=== PATIENT | female | born 1945 | race African-American/Black ===

== ENCOUNTER 2017-02-07 10:39 | Inpatient (IN) | payer OTHER, MEDICARE ==
[2017-02-07] VITALS (12 sets, daily range): BP systolic 157–242; BP diastolic 65–104; PULSE 64–82; RESP 17–24; TEMP 97.5–98.4; O2SAT 95–99
[~2017-02-07] VITALS: Ht 165.1 cm; Wt 68.4 kg
[~2017-02-07 10:39] MED LIST: ASPI81 PO; SIMV5TAB3 PO; TOPR100T15 PO
[2017-02-07] MEDS ORDERED: SODIUM CHLORIDE 0.9% FLUSH 10 ML FLUSH IV FLUSH PRN ×2 (11:15→15:15)
--- NOTE | 2017-02-07 11:16 | PD ---
HPI Chief Complaint: Abnormal Results Time Seen by Provider: 11:05 Travel History International Travel<30 days: No Contact w/Intl Traveler<30days: No Traveled to known affect area: No History of Present Illness HPI Patient comes in complaining of right low extremity pain and swelling ongoing for 2 weeks. Patient denies any known injury. Patient reports approximately 3 weeks ago her primary care doctor changed her medications around taking her off of her water pill which she thinks is causing the swelling. Patient describes pain as a soreness primarily in her right foot radiates throughout her right lower extremity. Patient's reports she's had to start walking with a cane secondary to pain. Denies any chest pain, shortness breath, fevers, nausea and vomiting, numbness or tingling, headache, or loss or change in bowel or bladder. PFSH Past Medical History Hx Anticoagulant Therapy: No Asthma: No Autoimmune Disease: No Blood Disorders: No Depression: Yes Heart Rhythm Problems: Yes Cancer: Yes (HX THROAT CA) Cardiac Catheterization: Yes (STENT; ANGIOPLASTY) Cardiovascular Problems: Yes High Cholesterol: Yes Chemotherapy: No Chest Pain: Yes Congestive Heart Failure: Yes COPD: No Cerebrovascular Accident: No Coronary Artery Disease: Yes Diabetes: No Diminished Hearing: No Endocrine: No Genitourinary: No Hypertension: Yes Immune Disorder: No Musculoskeletal: No Neurologic: No Psychiatric: No Reproductive: No Respiratory: No Myocardial Infarction: No Radiation Therapy: Yes (25 years ago ) Sleep Apnea: No ?: Unknown Menopausal: Yes Past Surgical History Abdominal Surgery: No AICD: No Cardiac Surgery: No Coronary Stent: Yes Ear Surgery: No Endocrine Surgery: No Eye Surgery: No Genitourinary Surgery: No Gynecologic Surgery: No Hysterectomy: No Oral Surgery: Yes (THROAT CA REMOVAL) Pacemaker: No Thoracic Surgery: No Other Surgery: Yes (THROAT) Social History Alcohol Use: Yes (COUPLE SHOTS DAY) Tobacco Use: No Substance Use: Yes (MARIJUANA) Allergies-Medications (Allergen,Severity, Reaction): Coded Allergies: No Known Allergies (Verified , 02/07/17) Reported Meds & Prescriptions Reported Meds & Active Scripts Active Reported Donepezil 5 Mg Tab 5 Mg PO HS Atorvastatin (Atorvastatin Calcium) 40 Mg Tab 40 Mg PO HS Metoprolol Succinate ER 24 HR (Metoprolol Succinate) 25 Mg Tab 100 Mg PO DAILY Review of Systems Except as stated in HPI: all other systems reviewed are Neg Physical Exam Narrative GENERAL: Well-developed, overly nourished, in no acute distress, and non-ill appearing. SKIN: Focused skin assessment warm and dry. HEAD: Atraumatic. Normocephalic. EYES: Pupils equal and round. EOMI. No scleral icterus. No injection or drainage. ENT: No nasal bleeding or discharge. Mucous membranes pink and moist. NECK: Trachea midline. Supple. No nuclear rigidity. CARDIOVASCULAR: Dorsal pulses 2+, intact, equal bilaterally. Capillary refill less than 2 seconds. RESPIRATORY: No accessory muscle use. No respiratory distress. MUSCULOSKELETAL: No obvious deformities. No clubbing. No cyanosis. 1+ nonpitting edema right foot. Full range of motion. Negative Homans sign. Patient reports tenderness to palpation right lower extremity distal to the knee. NEUROLOGICAL: Awake and alert. No obvious cranial nerve deficits. Motor grossly within normal limits. Normal speech. PSYCHIATRIC: Appropriate mood and affect; insight and judgment normal. Data Data Last Documented VS Vital Signs Date Time Temp Pulse Resp B/P (MAP) Pulse Ox O2 Delivery O2 Flow Rate FiO2 02/07/17 14:17 230/84 (132) Automatic Cuff 02/07/17 13:50 22 02/07/17 13:15 73 96 Room Air 02/07/17 10:41 97.6 Orders Orders Basic Metabolic Panel (Bmp) (02/07/17 11:11) Complete Blood Count With Diff (02/07/17 11:11) Prothrombin Time / Inr (Pt) (02/07/17 11:11) Act Partial Throm Time (Ptt) (02/07/17 11:11) Iv Access Insert/Monitor (02/07/17 11:11) Ecg Monitoring (02/07/17 11:11) Oximetry (02/07/17 11:11) Sodium Chloride 0.9% Flush (Ns Flush) (02/07/17 11:15) Us Leg Venous Doppler (02/07/17 11:11) Foot, Complete (Cut7rla) (02/07/17 ) Acetaminophen (Tylenol) (02/07/17 12:45) Potassium Chlor 20 Meq Premix (Kcl 20 Me (02/07/17 13:30) Potassium Chloride (Kcl) (02/07/17 13:30) Lisinopril (Prinivil) (02/07/17 13:45) Labetalol Inj (Trandate Inj) (02/07/17 13:54) Electrocardiogram (02/07/17 ) Admit Order (Ed Use Only) (02/07/17 15:02) Labs Laboratory Tests Test 02/07/17 12:00 White Blood Count 9.5 TH/MM3 Red Blood Count 4.44 MIL/MM3 Hemoglobin 13.3 GM/DL Hematocrit 40.4 % Mean Corpuscular Volume 91.1 FL Mean Corpuscular Hemoglobin 30.1 PG Mean Corpuscular Hemoglobin Concent 33.0 % Red Cell Distribution Width 15.0 % Platelet Count 211 TH/MM3 Mean Platelet Volume 8.6 FL Neutrophils (%) (Auto) 76.8 % Lymphocytes (%) (Auto) 15.5 % Monocytes (%) (Auto) 6.6 % Eosinophils (%) (Auto) 0.6 % Basophils (%) (Auto) 0.5 % Neutrophils # (Auto) 7.3 TH/MM3 Lymphocytes # (Auto) 1.5 TH/MM3 Monocytes # (Auto) 0.6 TH/MM3 Eosinophils # (Auto) 0.1 TH/MM3 Basophils # (Auto) 0.0 TH/MM3 CBC Comment DIFF FINAL Differential Comment Prothrombin Time 10.9 SEC Prothromb Time International Ratio 1.0 RATIO Activated Partial Thromboplast Time 27.7 SEC Blood Urea Nitrogen 4 MG/DL Creatinine 0.79 MG/DL Random Glucose 95 MG/DL Calcium Level 8.0 MG/DL Sodium Level 142 MEQ/L Potassium Level 2.8 MEQ/L Chloride Level 101 MEQ/L Carbon Dioxide Level 34.3 MEQ/L Anion Gap 7 MEQ/L Estimat Glomerular Filtration Rate 87 ML/MIN [facility] Medical Decision Making Medical Screen Exam Complete: Yes Emergency Medical Condition: Yes Interpretation(s) X-ray of the right foot read by the radiologist shows: 1. No fracture, subluxation or other acute bony abnormality. 2. Osteopenia and mild scattered degenerative changes. 3. Nonspecific mild soft tissue swelling. 4. Small heel spur and small enthesophyte of the Achilles insertion. Ultrasound right lower extremity read by the radiologist shows: No DVT of the right lower extremity. EKG reviewed by Dr. Nye showed a sinus rhythm ventricular is 73. No STEMI. Differential Diagnosis DVT, fracture, edema, other Narrative Course Patient seen and examined. Initial laboratory neurological studies were ordered. IV was established and patient was placed on electronics engineering technologist. After having patient's blood pressure obtained manually by the RN, patient was reassessed reports she took her blood pressure medicine this morning and denies any symptoms from being elevated. Denies any headache, change in vision, chest pain, shortness of breath, back pain, bowel pain, or other symptoms. Discussed patient with Dr. Nye who saw and evaluated the patient and initially recommended starting patient on lisinopril however after having her blood pressure rechecked found to be even higher patient was then given a dose of labetalol and recommended patient stay overnight for further evaluation and treatment of her blood pressure. Patient is agreeable to this. All questions were answered. Discussed patient with hospitalist who is agreeable to patient. Physician Communication Physician Communication [address] Rodríguez, who is agreeable to admit the patient. Diagnosis Primary Impression: Hypertension Qualified Codes: I10 - Essential (primary) hypertension Additional Impressions: Hypokalemia Lower extremity edema Admitting Information Admitting Physician Requests: Observation Condition: Stable Jay Parr Feb 07, 2017 11:16
--- NOTE | 2017-02-07 11:46 | RADRPT ---
EXAM DATE/TIME: 02/07/2017 11:35 [facility] COMPARISON: No previous studies available for comparison. INDICATIONS : Pain without trauma. MEDICAL HISTORY : None. SURGICAL HISTORY : None. ENCOUNTER: Initial ACUITY: 2 weeks PAIN SCORE: 7/10 LOCATION: Right medial foot. FINDINGS: Bones of the right foot are osteopenic. No fracture or subluxation demonstrated. There is mild navicu lar/cuneiform and sesamoid osteoarthritis noted. There is a small heel spur and also a small enthesop hyte of the Achilles insertion. No evidence of Achilles tendon thickening. There is dorsal predominant mild soft tissue swelling, nonspecific. No radiopaque foreign body seen. CONCLUSION: 1. No fracture, subluxation or other acute bony abnormality. 2. Osteopenia and mild scattered degenerative changes. 3. Nonspecific mild soft tissue swelling. 4. Small heel spur and small enthesophyte of the Achilles insertion. Renato Erazo MD on February 07, 2017 at 11:43 Board Certified Radiologist. This report was verified electronically.
[2017-02-07] MEDS ORDERED: METO25TA6 PO (11:50)
[2017-02-07] MEDS ORDERED: ATOR40TA16 PO (12:28)
[2017-02-07] MEDS ORDERED: DONE5TAB7 PO (12:28)
--- NOTE | 2017-02-07 12:36 | RADRPT ---
EXAM DATE/TIME: 02/07/2017 12:04 [facility] COMPARISON: No previous studies available for comparison. INDICATIONS : Right leg edema. MEDICAL HISTORY : Hypercholesterolemia. Hypertension. Congestive heart failure. Depression. Alcohol use. Substan ce use. Carcinoma, throat. SURGICAL HISTORY : Throat carcinoma removal. Cardiac catheterization. Coronary stent. ENCOUNTER: Initial ACUITY: 2 weeks PAIN SCORE: 10/10 LOCATION: Right leg. TECHNIQUE: Venous ultrasound of the leg was performed from the inguinal ligament to the proximal calf. Real-yannick e, color Doppler and spectral tracing, compression and augmentation techniques were used. FINDINGS: There is normal compressibility of the deep venous system from the inguinal region to the proximal ca lf. No echogenic clot is seen in the lumen of the common femoral, femoral, popliteal, and posterior tibial veins. There is a normal response of the venous system to proximal and distal augmentation an d respiration. CONCLUSION: No DVT of the right lower extremity. Renato Erazo MD on February 07, 2017 at 12:34 Board Certified Radiologist. This report was verified electronically.
[2017-02-07 12:42] LABS: AUTOMATED NEUTROPHIL # 7.3 TH/MM3 (1.8-7.7); BASOPHIL % 0.5 % (0.0-2.0); EOSINOPHIL # 0.1 TH/MM3 (0-0.4); EOSINOPHIL % 0.6 % (0.0-4.0); HEMATOCRIT 40.4 % (35.0-46.0); HEMO FLAGS DIFF FINAL; LYMPH % 15.5 % (9.0-44.0); LYMPHOCYTE # 1.5 TH/MM3 (1.0-4.8); MEAN CELL VOLUME 91.1 FL (80.0-100.0); MEAN CORPUSCULAR HEMOGLOBIN 30.1 PG (27.0-34.0); MONO % 6.6 % (0.0-8.0); NEUT % 76.8 % (16.0-70.0); PLATELET COUNT 211 TH/MM3 (150-450); RED BLOOD COUNT 4.44 MIL/MM3 (4.00-5.30); WHITE BLOOD COUNT 9.5 TH/MM3 (4.0-11.0)
[2017-02-07] MEDS ORDERED: ACETAMINOPHEN 500 MG CPLT PO ONE (12:45)
[2017-02-07 12:52] LABS: APTT (PATIENT) 27.7 SEC (24.3-30.1); PROTHROMBIN TIME - PATIENT 10.9 SEC (9.8-11.6)
[2017-02-07 13:07] LABS: BICARBONATE 34.3 MEQ/L (21.0-32.0)
[2017-02-07 13:15] LABS: POTASSIUM 2.8 MEQ/L (3.5-5.1)
[2017-02-07] MEDS ORDERED: POTASSIUM CHLORIDE 20 MEQ CONTROLLED RELEASE TAB PO ONE (13:30)
[2017-02-07] MEDS ORDERED: POTASSIUM CHLOR 20 MEQ PREMIX 100 ML IV ONE (13:30)
[2017-02-07] MEDS ORDERED: LISINOPRIL 20 MG TAB PO ONE (13:45)
--- NOTE | 2017-02-07 13:50 | PD ---
Data Data Last Documented VS Vital Signs Date Time Temp Pulse Resp B/P (MAP) Pulse Ox O2 Delivery O2 Flow Rate FiO2 02/07/17 13:15 73 24 242/102 (148) 96 Room Air Manual Cuff/Auscultation 02/07/17 10:41 97.6 Orders Orders Basic Metabolic Panel (Bmp) (02/07/17 11:11) Complete Blood Count With Diff (02/07/17 11:11) Prothrombin Time / Inr (Pt) (02/07/17 11:11) Act Partial Throm Time (Ptt) (02/07/17 11:11) Iv Access Insert/Monitor (02/07/17 11:11) Ecg Monitoring (02/07/17 11:11) Oximetry (02/07/17 11:11) Sodium Chloride 0.9% Flush (Ns Flush) (02/07/17 11:15) Us Leg Venous Doppler (02/07/17 11:11) Foot, Complete (Wmc2tta) (02/07/17 ) Acetaminophen (Tylenol) (02/07/17 12:45) Potassium Chlor 20 Meq Premix (Kcl 20 Me (02/07/17 13:30) Potassium Chloride (Kcl) (02/07/17 13:30) Lisinopril (Prinivil) (02/07/17 13:45) Labs Laboratory Tests Test 02/07/17 12:00 White Blood Count 9.5 TH/MM3 Red Blood Count 4.44 MIL/MM3 Hemoglobin 13.3 GM/DL Hematocrit 40.4 % Mean Corpuscular Volume 91.1 FL Mean Corpuscular Hemoglobin 30.1 PG Mean Corpuscular Hemoglobin Concent 33.0 % Red Cell Distribution Width 15.0 % Platelet Count 211 TH/MM3 Mean Platelet Volume 8.6 FL Neutrophils (%) (Auto) 76.8 % Lymphocytes (%) (Auto) 15.5 % Monocytes (%) (Auto) 6.6 % Eosinophils (%) (Auto) 0.6 % Basophils (%) (Auto) 0.5 % Neutrophils # (Auto) 7.3 TH/MM3 Lymphocytes # (Auto) 1.5 TH/MM3 Monocytes # (Auto) 0.6 TH/MM3 Eosinophils # (Auto) 0.1 TH/MM3 Basophils # (Auto) 0.0 TH/MM3 CBC Comment DIFF FINAL Differential Comment Prothrombin Time 10.9 SEC Prothromb Time International Ratio 1.0 RATIO Activated Partial Thromboplast Time 27.7 SEC Blood Urea Nitrogen 4 MG/DL Creatinine 0.79 MG/DL Random Glucose 95 MG/DL Calcium Level 8.0 MG/DL Sodium Level 142 MEQ/L Potassium Level 2.8 MEQ/L Chloride Level 101 MEQ/L Carbon Dioxide Level 34.3 MEQ/L Anion Gap 7 MEQ/L Estimat Glomerular Filtration Rate 87 ML/MIN MDM Supervised Visit with JAMISON: Yes Narrative Course The history, exam, and medical decision-making in the associated mid-level provider note were completed with my assistance. I reviewed and agree with the findings presented. I attest that I had a [id number] encounter with the patient on the same day, and personally performed and documented my assessment and findings in the medical record. *My assessment and Findings: Right lower extremity parents on for 2 weeks. Saw her primary DrDeborah who changed around her medicines. She is currently on just a beta dee. It sounds like she was on a thiazide diuretic and an IVETTE inhibitor before. Potassium is a little low here. Blood pressures elevated. States she did take her metoprolol today. We'll restart her on an IVETTE inhibitor, give her some potassium, recommend close follow-up and recheck of potassium. Kristopher Nye MD Feb 07, 2017 13:50
[2017-02-07] MEDS ORDERED: LABETALOL HCL 100 MG/20 ML VIAL IV PUSH STA (13:54)
--- NOTE | 2017-02-07 15:08 | EKG ---
Date Performed: 02/07/2017 Time Performed: 14:19:36 PTAGE: 71 years EKG: Sinus rhythm WITH SINUS ARRHYTHMIA MINIMAL VOLTAGE CRITERIA FOR LVH, CONSIDER NORMAL VARIANT BORDERLINE ECG PREVIOUS TRACING : 01/31/2014 14.36 Compared to prior tracing no significant change DOCTOR: Unruly Mcnair Interpretating Date/Time 02/07/2017 15:08:08
[2017-02-07] MEDS ORDERED: NALOXONE HCL 0.4 MG/ML AMP IV PRN (15:15)
[2017-02-07] MEDS ORDERED: BISACODYL 10 MG SUPP RECTAL PRN (15:15)
[2017-02-07] MEDS ORDERED: hydrALAZINE HCL 20 MG/ML VIAL IV PUSH PRN (15:15)
[2017-02-07] MEDS ORDERED: SENNOSIDES 8.6 MG TAB PO PRN (15:15)
[2017-02-07] MEDS ORDERED: ACETAMINOPHEN 325 MG TAB PO PRN (15:15)
[2017-02-07] MEDS ORDERED: ONDANSETRON HCL 4 MG/2 ML VIAL IVP PRN (15:15)
[2017-02-07] MEDS ORDERED: LACTULOSE SYRUP 20 GM/30 ML CUP PO PRN (15:15)
[2017-02-07] MEDS ORDERED: MAGNESIUM HYDROXIDE SUSP 30 ML CUP PO PRN (15:15)
[2017-02-07] MEDS: cloNIDine HCL 0.1 MG TAB PO SCH ×2 (16:34→22:54)
[2017-02-07] MEDS ORDERED: niCARdipine INJ 25 MG in SODIUM CHLOR 0.9% 250 ML INJ 250 ML IV PRN (16:40)
--- NOTE | 2017-02-07 16:53 | HHI.HP ---
[facility] Primary Care Physician Unknown Admission Diagnosis hypertension, hypokalemia Diagnoses: Chief Complaint: Right lower extremity swelling and pain Travel History International Travel<30 Days: No Contact w/Intl Traveler <30 Da: No Traveled to Known Affected Are: No History of Present Illness 71-year-old female past medical history of hypertension who presented with right lower extremity edema and pain. Patient stated that one week ago her physician took her off of hydrochlorothiazide and simvastatin and put her on a long-acting metoprolol. She stated that she stopped the hydrochlorothiazide due to low potassium. Patient stated that after that happened she started having lower extremity edema. Edema initially more on the left than the right. She stated that due to edema and pain she went to the hospital. In the hospital patient was found to have a systolic blood pressures in the 240s. She denies any visual changes, headache, nausea/vomiting, chest pain, palpitation, lightheadedness or dizziness. She stated that she does have a history of heart murmur that she was diagnosed of a long time ago. She stated that she is unsure what type of heart murmur. She denies any symptoms of chest pain, shortness of breathing, palpitation, lightheadedness or dizziness with exertion. Patient's daughter is at the bedside during the interview. All other review of symptoms reviewed and all negative. Past Family Social History Past Medical History Hypertension History of throat cancer Coronary artery disease Hyperlipidemia Past Surgical History Removal of throat cancer Coronary artery disease Reported Medications Donepezil 5 Mg Tab 5 Mg PO HS Atorvastatin (Atorvastatin Calcium) 40 Mg Tab 40 Mg PO HS Metoprolol Succinate ER 24 HR (Metoprolol Succinate) 25 Mg Tab 100 Mg PO DAILY Allergies: Coded Allergies: No Known Allergies (Verified , 02/07/17) Active Ordered Medications Current Medications Sodium Chloride (NS Flush) 2 ml UNSCH PRN IV FLUSH FLUSH AFTER USING IV ACCESS Last administered on 02/07/17t 13:50; Start 02/07/17 at 11:15; Stop 02/07/17 at 15:59; Status DC Acetaminophen (Tylenol) 500 mg ONCE ONCE PO Last administered on 02/07/17 13: 08; Start 02/07/17 at 12:45; Stop 02/07/17 at 12:46; Status DC Potassium Chloride 100 ml @ 50 mls/hr BOLUS ONCE IV Last administered on 02/07 13:51; Start 02/07/17 at 13:30; Stop 02/07/17 at 15:29; Status DC Potassium Chloride (KCl) 40 meq ONCE ONCE PO Last administered on 02/07/17 13 :50; Start 02/07/17 at 13:30; Stop 02/07/17 at 13:31; Status DC Lisinopril (Prinivil) 20 mg ONCE ONCE PO Last administered on 02/07/17 13:49 ; Start 02/07/17 at 13:45; Stop 02/07/17 at 13:46; Status DC Labetalol HCl (Trandate Inj) 10 mg ONCE STAT IV PUSH Last administered on 02/07 14:06; Start 02/07/17 at 13:54; Stop 02/07/17 at 13:56; Status DC Sodium Chloride (NS Flush) 2 ml UNSCH PRN IV FLUSH FLUSH AFTER USING IV ACCESS ; Start 02/07/17 at 15:15 Sodium Chloride (NS Flush) 2 ml BID IV FLUSH ; Start 02/07/17 at 21:00 Acetaminophen (Tylenol) 650 mg Q4H PRN PO TEMP > 100.4; Start 02/07/17 at 15:15 Ondansetron HCl (Zofran Inj) 4 mg Q6H PRN IVP NAUSEA OR VOMITING; Start at 15:15 Naloxone HCl (Narcan Inj) 0.4 mg UNSCH PRN IV SEE LABEL COMMENTS; Start at 15:15 Senna/Docusate Sodium (Mireille-Colace) 1 tab BID PO ; Start 02/07/17 at 21:00 Magnesium Hydroxide (Milk Of Magnesia Liq) 30 ml Q12H PRN PO MILD - MODERATE CONSTIPATION; Start 02/07/17 at 15:15 Sennosides (Senokot) 17.2 mg Q12H PRN PO MODERATE - SEVERE CONSTIPATION; Start 02/07/17 at 15:15 Bisacodyl (Dulcolax Supp) 10 mg DAILY PRN RECTAL SEVERE CONSITIPATION; Start at 15:15 Lactulose (Lactulose Liq) 30 ml DAILY PRN PO SEVERE CONSITIPATION; Start at 15:15 Hydralazine HCl (Apresoline Inj) 20 mg Q4H PRN IV PUSH SPB>180 or DBP>100; Start 02/07/17 at 15:15 Atorvastatin Calcium (Lipitor) 40 mg HS PO ; Start 02/07/17 at 21:00 Donepezil HCl (Aricept) 5 mg HS PO ; Start 02/07/17 at 21:00 Metoprolol Succinate (Toprol Xl) 100 mg DAILY PO ; Start 02/08/17 at 09:00 Clonidine (Catapres) 0.1 mg Q8HR PO Last administered on 02/07/17t 16:34; Start 02/07/17 at 15:15 Family History Past family history reviewed and are negative. Social History Patient socially drinks and occasionally use marijuana. Denies any history of tobacco use. Physical Exam Vital Signs Vital Signs Date Time Temp Pulse Resp B/P (MAP) Pulse Ox O2 Delivery O2 Flow Rate FiO2 02/07/17 16:00 72 22 227/104 (145) 99 Room Air 02/07/17 15:15 66 20 200/88 (125) 95 Room Air 02/07/17 14:17 230/84 (132) Automatic Cuff 02/07/17 13:50 22 02/07/17 13:15 73 24 242/102 (148) 96 Room Air Manual Cuff/Auscultation 02/07/17 11:58 232/82 (132) 230/82 (131) 02/07/17 11:54 236/80 (131) Automatic Cuff 02/07/17 11:44 96 Room Air 02/07/17 10:41 97.6 72 20 97 Room Air Physical Exam GENERAL: This is a well-nourished, well-developed patient, in no apparent distress. SKIN: No rashes, ecchymoses or lesions. Cool and dry. HEAD: Atraumatic. Normocephalic. No temporal or scalp tenderness. EYES: Pupils equal round and reactive. Extraocular motions intact. No scleral icterus. No injection or drainage. ENT: Nose without bleeding, purulent drainage or septal hematoma. Throat without erythema, tonsillar hypertrophy or exudate. Uvula midline. Airway patent. NECK: Trachea midline. No JVD or lymphadenopathy. Supple, nontender, no meningeal signs. CARDIOVASCULAR: Regular rate and rhythm 4/6 harsh systolic heart murmur RESPIRATORY: Clear to auscultation. Breath sounds equal bilaterally. No wheezes , rales, or rhonchi. GASTROINTESTINAL: Abdomen soft, non-tender, nondistended. No hepato-splenomegaly , or palpable masses. No guarding. MUSCULOSKELETAL: Right lower leg with trace edema. NEUROLOGICAL: Awake and alert. Cranial nerves II through XII intact. Motor and sensory grossly within normal limits. Five out of 5 muscle strength in all muscle groups. Normal speech. Laboratory Laboratory Tests Test 02/07/17 12:00 White Blood Count 9.5 Red Blood Count 4.44 Hemoglobin 13.3 Hematocrit 40.4 Mean Corpuscular Volume 91.1 Mean Corpuscular Hemoglobin 30.1 Mean Corpuscular Hemoglobin Concent 33.0 Red Cell Distribution Width 15.0 Platelet Count 211 Mean Platelet Volume 8.6 Neutrophils (%) (Auto) 76.8 Lymphocytes (%) (Auto) 15.5 Monocytes (%) (Auto) 6.6 Eosinophils (%) (Auto) 0.6 Basophils (%) (Auto) 0.5 Neutrophils # (Auto) 7.3 Lymphocytes # (Auto) 1.5 Monocytes # (Auto) 0.6 Eosinophils # (Auto) 0.1 Basophils # (Auto) 0.0 CBC Comment DIFF FINAL Differential Comment Prothrombin Time 10.9 Prothromb Time International Ratio 1.0 Activated Partial Thromboplast Time 27.7 Blood Urea Nitrogen 4 Creatinine 0.79 Random Glucose 95 Calcium Level 8.0 Sodium Level 142 Potassium Level 2.8 Chloride Level 101 Carbon Dioxide Level 34.3 Anion Gap 7 Estimat Glomerular Filtration Rate 87 Result Diagram: 02/07/17 1200 02/07/17 1200 Imaging Last Impressions Lower Extremity Ultrasound 02/07/17 1111 Signed Impressions: Service Date/Time: Tuesday, February 07, 2017 12:04 - CONCLUSION: No DVT of the right lower extremity. Renato Erazo MD Foot X-Ray 02/07/17 0000 Signed Impressions: Service Date/Time: Tuesday, February 07, 2017 11:35 - CONCLUSION: 1. No fracture, subluxation or other acute bony abnormality. 2. Osteopenia and mild scattered degenerative changes. 3. Nonspecific mild soft tissue swelling. 4. Small heel spur and small enthesophyte of the Achilles insertion. Renato Erazo MD Caprinjosephine VTE Risk Assessment Caprini VTE Risk Assessment: Mod/High Risk (score >= 2) Caprini Risk Assessment Model Point Value = 1 Point Value = 2 Point Value = 3 Point Value = 5 Age 41-60 Minor surgery BMI > 25 kg/m2 Swollen legs Varicose veins or History of unexplained or recurrent spontaneous Oral contraceptives or hormone replacement Sepsis (< 1 month) Serious lung disease, including pneumonia (< 1 month) Abnormal pulmonary function Acute myocardial infarction Congestive heart failure (< 1 month) History of inflammatory bowel disease Medical patient at bed rest Age 61-74 Arthroscopic surgery Major open surgery (> 45 min) Laparoscopic surgery (> 45 min) Malignancy Confined to bed (> 72 hours) Immobilizing plaster cast Central venous access Age >= 75 History of VTE Family history of VTE Factor V Leiden Prothrombin [id number] Lupus anticoagulant Anticardiolipin antibodies Elevated serum homocysteine Heparin-induced thrombocytopenia Other congenital or acquired thrombophilia Stroke (< 1 month) Elective arthroplasty Hip, pelvis, or leg fracture Acute spinal cord injury (< 1 month) Prophylaxis Regimen Total Risk Factor Score Risk Level Prophylaxis Regimen 0-1 Low Early ambulation 2 Moderate Order ONE of the following: *Sequential Compression Device (SCD) *Heparin 5000 units SQ BID 3-4 Higher Order ONE of the following medications: *Heparin 5000 units SQ TID *Enoxaparin/Lovenox 40 mg SQ daily (WT < 150 kg, CrCl > 30 mL/min) *Enoxaparin/Lovenox 30 mg SQ daily (WT < 150 kg, CrCl > 10-29 mL/min) *Enoxaparin/Lovenox 30 mg SQ BID (WT < 150 kg, CrCl > 30 mL/min) AND/OR *Sequential Compression Device (SCD) 5 or more Highest Order ONE of the following medications: *Heparin 5000 units SQ TID (Preferred with Epidurals) *Enoxaparin/Lovenox 40 mg SQ daily (WT < 150 kg, CrCl > 30 mL/min) *Enoxaparin/Lovenox 30 mg SQ daily (WT < 150 kg, CrCl > 10-29 mL/min) *Enoxaparin/Lovenox 30 mg SQ BID (WT < 150 kg, CrCl > 30 mL/min) AND *Sequential Compression Device (SCD) Assessment and Plan Assessment and Plan 71-year-old female past medical history of attention, coronary disease, hyperlipidemia who presented with Hypertensive urgency -Systolic blood person to 240s but asymptomatic. She was given labetalol and lisinopril were no improvement in blood pressure. She was then given clonidine with no improvement. Will put patient on Cardene drip. Adjust accordingly. Resume home medication. Heart murmur -Patient has a history of heart murmur. Heart murmur was pretty harsh and she has not had a recent echo. Due to hypertensive urgency will get an echo. Right lower extremity edema -Doppler order was negative for any DVT. -Most likely secondary to uncontrolled blood pressure. -Will monitor. DVT prophylaxis -SCDs Code Status full code Discussed Condition With patient and her daughter Physician Certification 2 Midnight Certification Type: Admission for Inpatient Services Order for Inpatient Services The services are ordered in accordance with Medicare regulations or non- Medicare payer requirements, as applicable. In the case of services not specified as inpatient-only, they are appropriately provided as inpatient services in accordance with the 2-midnight benchmark. Estimated LOS (days): 2 2 days is the estimated time the patient will need to remain in the hospital, assuming treatment plan goals are met and no additional complications. Post-Hospital Plan: Lakisha Jerez MD Feb 07, 2017 16:53
[2017-02-07] MEDS ORDERED: POTASSIUM CHLORIDE 25 MEQ EFFERVESCENT TAB PO ONE (18:45)
[2017-02-07] MEDS ORDERED: ATORVASTATIN 40 MG TAB PO SCH (21:00)
[2017-02-07] MEDS: SODIUM CHLORIDE 0.9% FLUSH 10 ML FLUSH IV FLUSH SCH (21:00)
[2017-02-07] MEDS: POTASSIUM CHLORIDE 20 MEQ CONTROLLED RELEASE TAB PO SCH (21:00)
[2017-02-07] MEDS ORDERED: DONEPEZIL HCL 5 MG TAB PO SCH (21:00)
[2017-02-07 22:07] LABS: MAGNESIUM 1.4 MG/DL (1.5-2.5); POTASSIUM 3.9 MEQ/L (3.5-5.1)
[2017-02-07] MEDS: DOCUSATE SODIUM 50 MG/SENNA 8.6 MG TAB PO SCH (22:54)
[2017-02-08 04:27] VITALS: BP 152/63; PULSE 80; RESP 17; TEMP 97.6; O2SAT 96
[2017-02-08] MEDS: cloNIDine HCL 0.1 MG TAB PO SCH ×2 (06:16→14:41)
[2017-02-08 07:42] VITALS: BP 114/60; PULSE 61; RESP 18; TEMP 97.5; O2SAT 100
[2017-02-08 08:30] LABS: HEMATOCRIT 34.5 % (35.0-46.0); MEAN CELL VOLUME 91.7 FL (80.0-100.0); MEAN CORPUSCULAR HEMOGLOBIN 30.6 PG (27.0-34.0); MEAN CORPUSCULAR HGB CONC 33.4 % (32.0-36.0); PLATELET COUNT 150 TH/MM3 (150-450); RED BLOOD COUNT 3.76 MIL/MM3 (4.00-5.30); RED CELL DISTRIBUTION WIDTH 14.8 % (11.6-17.2); REVIEW FLAG FINAL; WHITE BLOOD COUNT 5.9 TH/MM3 (4.0-11.0)
[2017-02-08 08:58] LABS: BICARBONATE 30.7 MEQ/L (21.0-32.0)
[2017-02-08] MEDS: POTASSIUM CHLORIDE 20 MEQ CONTROLLED RELEASE TAB PO SCH (08:58)
[2017-02-08] MEDS: DOCUSATE SODIUM 50 MG/SENNA 8.6 MG TAB PO SCH (08:58)
[2017-02-08] MEDS ORDERED: LISINOPRIL 20 MG TAB PO SCH (09:00)
[2017-02-08] MEDS ORDERED: METOPROLOL SUCCINATE 50 MG EXTENDED RELEASE TAB PO SCH (09:00)
[2017-02-08] MEDS: SODIUM CHLORIDE 0.9% FLUSH 10 ML FLUSH IV FLUSH SCH (09:01)
[2017-02-08 09:15] LABS: POTASSIUM 2.8 MEQ/L (3.5-5.1)
[2017-02-08] MEDS ORDERED: POTASSIUM CHLORIDE 25 MEQ EFFERVESCENT TAB PO ONE (10:30)
[2017-02-08 11:38] VITALS: BP 161/68; PULSE 73; RESP 18; TEMP 96.5; O2SAT 96
[2017-02-08] MEDS: MAGNESIUM SULFATE 1 GM PREMIX 100 ML IV SCH ×2 (12:08→14:41)
[2017-02-08] MEDS ORDERED: MAGN250T11 PO (12:16)
[2017-02-08] MEDS ORDERED: CLON0.1T PO (12:16)
[2017-02-08] MEDS ORDERED: LISI-515 PO (12:16)
[2017-02-08] MEDS ORDERED: POTA20TA5 PO (12:16)
--- NOTE | 2017-02-08 12:32 | ECHRPT ---
Indication: a fib/flutter CONCLUSIONS The left ventricular systolic function is low normal with an estimated ejection fraction in the rang e of 50- 55%. Normal left ventricular size. There is assymetric septal hypertrophy. No regional wall motion abnormalities are present. Mild mitral valve regurgitation. Mild aortic valve regurgitation. No aortic valve stenosis. Aortic valve mean gradient is 7 mmHg. There is mild tricuspid valve regurgitation. The pulmonary valve is not well visualized. BP: / HR: Rhythm: MEASUREMENTS (Male / Female) Normal Values Technical Quality:Good 2D ECHO LV Diastolic Diameter PLAX 4.4 cm 4.2 - 5.9 / 3.9 - 5.3 cm LV Systolic Diameter PLAX 3.4 cm IVS Diastolic Thickness 1.5 cm 0.6 - 1.0 / 0.6 - 0.9 cm LVPW Diastolic Thickness 0.9 cm 0.6 - 1.0 / 0.6 - 0.9 cm LV Relative Wall Thickness 0.5 RV Internal Dim ED PLAX 2.5 cm LVOT Diameter 1.5 cm M-MODE Aortic Root Diameter MM 2.9 cm LA Systolic Diameter MM 3.3 cm LA Ao Ratio MM 1.1 AV Cusp Separation MM 1.6 cm DOPPLER AV Peak Velocity 190.0 cm/s AV Peak Gradient 14.4 mmHg AV Mean Gradient 7.0 mmHg AV Velocity Time Integral 45.9 cm AI Peak Velocity 238.0 cm/s AI Peak Gradient 22.7 mmHg AI Pressure Half Time 572.0 ms LVOT Peak Velocity 98.5 cm/s LVOT Peak Gradient 3.9 mmHg LVOT Velocity Time Integral 30.1 cm AV Area Cont Eq vti 1.2 cm AV Area Cont Eq pk 0.9 cm Mitral E Point Velocity 81.4 cm/s Mitral A Point Velocity 80.5 cm/s Mitral E to A Ratio 1.0 LV E' Lateral Velocity 10.7 cm/s Mitral E to LV E' Lateral Ratio 7.6 LV E' Septal Velocity 8.1 cm/s Mitral E to LV E' Septal Ratio 10.1 FINDINGS LEFT VENTRICLE The left ventricular systolic function is low normal with an estimated ejection fraction in the rang e of 50- 55%. Normal left ventricular size. There is assymetric septal hypertrophy. No regional wall motion abnormalities are present. RIGHT VENTRICLE Normal right ventricular size and systolic function. LEFT ATRIUM The left atrial size is normal. RIGHT ATRIUM The right atrial size is normal. ATRIAL SEPTUM Normal atrial septal thickness without atrial level shunting by limited color doppler interrogation. AORTA The aortic root and proximal ascending aorta are normal in size on limited imaging. MITRAL VALVE Structurally normal mitral valve. Mild mitral valve regurgitation. AORTIC VALVE Trileaflet aortic valve. Mild aortic valve regurgitation. No aortic valve stenosis. Aortic valve mean gradient is 7 mmHg. TRICUSPID VALVE There is mild tricuspid valve regurgitation. Structurally normal tricuspid valve. PULMONARY VALVE The pulmonary valve is not well visualized. VESSELS The inferior vena cava is normal in size. PERICARDIUM No pericardial effusion. Jerald Chris MD (Electronically Signed) Final Date:08 February 2017 12:30
--- NOTE | 2017-02-08 14:38 | HHI.DCPOC ---
Discharge Care Plan Diagnosis: (1) Hypertensive urgency (2) Hypokalemia Goals to Promote Your Health * To prevent worsening of your condition and complications * To maintain your health at the optimal level Directions to Meet Your Goals Take your medications as prescribed Follow your dietary instruction Follow activity as directed Keep your appointments as scheduled Take your immunizations and boosters as scheduled If your symptoms worsen call your PCP, if no PCP go to Urgent Care Center or Emergency Room Smoking is Dangerous to Your Health. Avoid second hand smoke Call the 24-hour hour crisis hotline for domestic abuse at Lakisha Rodríguez MD Feb 08, 2017 14:38
--- NOTE | 2017-02-08 15:39 | HHI.PR ---
Subjective Remarks f/u for hypertensive urgency and hypokalemia. patient stated she feels great. BP improved drastically. She stated leg pain has improved too. Patient very anxious to go home. Two daughters at bedside. Objective Vitals Vital Signs Date Time Temp Pulse Resp B/P (MAP) Pulse Ox O2 Delivery O2 Flow Rate FiO2 02/08/17 11:38 96.5 73 18 161/68 (99) 96 02/08/17 07:42 97.5 61 18 114/60 (78) 100 02/08/17 04:27 97.6 80 17 152/63 (92) 96 02/07/17 23:00 97.5 82 18 161/74 (103) 97 02/07/17 21:34 98.4 68 20 165/65 (98) 97 Room Air 02/07/17 18:00 74 17 157/67 (97) 98 Room Air 02/07/17 17:00 64 20 202/82 (122) 96 Room Air 02/07/17 16:00 72 22 227/104 (145) 99 Room Air I/O 02/07/17 02/07/17 02/07/17 02/08/17 02/08/17 02/08/17 06:59 14:59 22:59 06:59 14:59 22:59 Intake Total 50 ml 240 ml 850 ml Balance 50 ml 240 ml 850 ml Intake Oral 240 ml 750 ml IV Total 50 ml 100 ml # Voids 3 1 1 2 # Bowel Movements 0 Result Diagram: 02/08/17 0736 02/08/17 0736 Objective Remarks GENERAL: in NAD NECK: Supple, trachea midline. No JVD or lymphadenopathy. CARDIOVASCULAR: Regular rate and rhythm 4/6 systolic harsh murmur. RESPIRATORY: Breath sounds equal bilaterally. No accessory muscle use. GASTROINTESTINAL: Abdomen soft, non-tender, nondistended. MUSCULOSKELETAL: No cyanosis, or edema. BACK: Nontender without obvious deformity. No CVA tenderness. Medications and IVs Current Medications Sodium Chloride (NS Flush) 2 ml UNSCH PRN IV FLUSH FLUSH AFTER USING IV ACCESS Last administered on 02/07/17 13:50; Start 02/07/17 at 11:15; Stop 02/07/17 at 15:59; Status DC Acetaminophen (Tylenol) 500 mg ONCE ONCE PO Last administered on 02/07/17 13: 08; Start 02/07/17 at 12:45; Stop 02/07/17 at 12:46; Status DC Potassium Chloride 100 ml @ 50 mls/hr BOLUS ONCE IV Last administered on 02/07 13:51; Start 02/07/17 at 13:30; Stop 02/07/17 at 15:29; Status DC Potassium Chloride (KCl) 40 meq ONCE ONCE PO Last administered on 02/07/17 13 :50; Start 02/07/17 at 13:30; Stop 02/07/17 at 13:31; Status DC Lisinopril (Prinivil) 20 mg ONCE ONCE PO Last administered on 02/07/17 13:49 ; Start 02/07/17 at 13:45; Stop 02/07/17 at 13:46; Status DC Labetalol HCl (Trandate Inj) 10 mg ONCE STAT IV PUSH Last administered on 02/07 14:06; Start 02/07/17 at 13:54; Stop 02/07/17 at 13:56; Status DC Sodium Chloride (NS Flush) 2 ml UNSCH PRN IV FLUSH FLUSH AFTER USING IV ACCESS ; Start 02/07/17 at 15:15 Sodium Chloride (NS Flush) 2 ml BID IV FLUSH Last administered on 02/08/17 09: 01; Start 02/07/17 at 21:00 Acetaminophen (Tylenol) 650 mg Q4H PRN PO TEMP > 100.4; Start 02/07/17 at 15:15 Ondansetron HCl (Zofran Inj) 4 mg Q6H PRN IVP NAUSEA OR VOMITING; Start at 15:15 Naloxone HCl (Narcan Inj) 0.4 mg UNSCH PRN IV SEE LABEL COMMENTS; Start at 15:15 Senna/Docusate Sodium (Mireille-Colace) 1 tab BID PO Last administered on 08:58; Start 02/07/17 at 21:00 Magnesium Hydroxide (Milk Of Magnesia Liq) 30 ml Q12H PRN PO MILD - MODERATE CONSTIPATION; Start 02/07/17 at 15:15 Sennosides (Senokot) 17.2 mg Q12H PRN PO MODERATE - SEVERE CONSTIPATION; Start 02/07/17 at 15:15 Bisacodyl (Dulcolax Supp) 10 mg DAILY PRN RECTAL SEVERE CONSITIPATION; Start at 15:15 Lactulose (Lactulose Liq) 30 ml DAILY PRN PO SEVERE CONSITIPATION; Start at 15:15 Hydralazine HCl (Apresoline Inj) 20 mg Q4H PRN IV PUSH SPB>180 or DBP>100; Start 02/07/17 at 15:15; Stop 02/07/17 at 22:01; Status DC Atorvastatin Calcium (Lipitor) 40 mg HS PO Last administered on 02/07/17 22:54 ; Start 02/07/17 at 21:00 Donepezil HCl (Aricept) 5 mg HS PO Last administered on 02/07/17 22:54; Start 02/07/17 at 21:00 Metoprolol Succinate (Toprol Xl) 100 mg DAILY PO Last administered on 08:58; Start 02/08/17 at 09:00 Clonidine (Catapres) 0.1 mg Q8HR PO Last administered on 02/08/17 14:41; Start 02/07/17 at 15:15 Nicardipine HCl 25 mg/Sodium Chloride 260 ml @ 52 mls/hr Q5H PRN IV Blood pressure management; Start 02/07/17 at 16:40 Lisinopril (Prinivil) 20 mg DAILY PO Last administered on 02/08/17 08:58; Start 02/08/17 at 09:00 Potassium Chloride (KCl) 20 meq Q12HR PO Last administered on 02/08/17 08:58; Start 02/07/17 at 21:00 Potassium Bicarb/ Potassium Chloride (K-Lyte Cl Eff) 50 meq ONCE ONCE PO Last administered on 02/07/17 19:54; Start 02/07/17 at 18:45; Stop 02/07/17 at 18:46; Status DC Magnesium Sulfate/ Dextrose 100 ml @ 100 mls/hr Q1H IV Last administered on 14:41; Start 02/08/17 at 11:00; Stop 02/08/17 at 12:59; Status DC Potassium Bicarb/ Potassium Chloride (K-Lyte Cl Eff) 75 meq ONCE ONCE PO Last administered on 8/27/17at 12:06; Start 02/08/17 at 10:30; Stop 02/08/17 at 10:31; Status DC A/P Assessment and Plan 71-year-old female past medical history of attention, coronary disease, hyperlipidemia who presented with Hypertensive urgency -Systolic blood person to 240s in admit but asymptomatic. -improved drastically with lisinopril. clonidine. continue metoprolol. Heart murmur -ECHO showed asymmetric septal hypertrophy with normal EF. patient asymptotic. f /u as outpatient. Right lower extremity edema -Doppler order was negative for any DVT. -Most likely secondary to uncontrolled blood pressure. hypokalemia -replenish as needed. since this is chronic will schedule medication. -improved. DVT prophylaxis -SCDs Discharge Planning pending repeat K that was ordered at 3. I spoked to lab and they stated should be done soon. If K improved she can be discharge. Lakisha Rodríguez MD Feb 08, 2017 15:39
[2017-02-08 16:00] VITALS: BP 120/52; PULSE 66; RESP 18; TEMP 96.7; O2SAT 95
--- NOTE | 2017-02-08 16:03 | HHI.DS ---
Discharge Summary Admission Date Feb 07, 2017 at 15:08 Discharge Date: Feb 09, 2017 Admitting Diagnosis hypertension, hypokalemia (1) Hypertensive urgency ICD Code: I16.0 - Hypertensive urgency Diagnosis: Principal (2) Hypokalemia ICD Code: E87.6 - Hypokalemia Diagnosis: Principal Status: Acute (3) Hyperlipidemia ICD Code: E78.5 - Hyperlipidemia Diagnosis: Secondary Status: Acute Procedures See hospital course. Brief History - From Admission 71-year-old female past medical history of hypertension who presented with right lower extremity edema and pain. Patient stated that one week ago her physician took her off of hydrochlorothiazide and simvastatin and put her on a long-acting metoprolol. She stated that she stopped the hydrochlorothiazide due to low potassium. Patient stated that after that happened she started having lower extremity edema. Edema initially more on the left than the right. She stated that due to edema and pain she went to the hospital. In the hospital patient was found to have a systolic blood pressures in the 240s. She denies any visual changes, headache, nausea/vomiting, chest pain, palpitation, lightheadedness or dizziness. She stated that she does have a history of heart murmur that she was diagnosed of a long time ago. She stated that she is unsure what type of heart murmur. She denies any symptoms of chest pain, shortness of breathing, palpitation, lightheadedness or dizziness with exertion. Patient's daughter is at the bedside during the interview. All other review of symptoms reviewed and all negative. CBC/BMP: 02/08/17 0736 02/08/17 0736 Significant Findings Laboratory Tests Test 02/07/17 12:00 02/07/17 21:20 02/08/17 07:36 Neutrophils (%) (Auto) 76.8 % (16.0-70.0) Blood Urea Nitrogen 4 MG/DL (7-18) 4 MG/DL (7-18) Calcium Level 8.0 MG/DL (8.5-10.1) 8.1 MG/DL (8.5-10.1) Potassium Level 2.8 MEQ/L (3.5-5.1) 2.8 MEQ/L (3.5-5.1) Carbon Dioxide Level 34.3 MEQ/L (21.0-32.0) Estimat Glomerular Filtration Rate 87 ML/MIN (>89) Magnesium Level 1.4 MG/DL (1.5-2.5) Red Blood Count 3.76 MIL/MM3 (4.00-5.30) Hemoglobin 11.5 GM/DL (11.6-15.3) Hematocrit 34.5 % (35.0-46.0) Imaging Last Impressions Lower Extremity Ultrasound 02/07/17 1111 Signed Impressions: Service Date/Time: Tuesday, February 07, 2017 12:04 - CONCLUSION: No DVT of the right lower extremity. Renato Erazo MD Foot X-Ray 02/07/17 0000 Signed Impressions: Service Date/Time: Tuesday, February 07, 2017 11:35 - CONCLUSION: 1. No fracture, subluxation or other acute bony abnormality. 2. Osteopenia and mild scattered degenerative changes. 3. Nonspecific mild soft tissue swelling. 4. Small heel spur and small enthesophyte of the Achilles insertion. Renato Erazo MD PE at Discharge GENERAL: in NAD NECK: Supple, trachea midline. No JVD or lymphadenopathy. CARDIOVASCULAR: Regular rate and rhythm 4/6 systolic harsh murmur. RESPIRATORY: Breath sounds equal bilaterally. No accessory muscle use. GASTROINTESTINAL: Abdomen soft, non-tender, nondistended. MUSCULOSKELETAL: No cyanosis, or edema. BACK: Nontender without obvious deformity. No CVA tenderness. Pt update on day of discharge Please see progress note on the day of discharge for further information. Hospital Course 71-year-old female past medical history of attention, coronary disease, hyperlipidemia who presented with Hypertensive urgency -Systolic blood person to 240s in admit but asymptomatic. -improved drastically with lisinopril, clonidine and metoprolol. Heart murmur -ECHO showed asymmetric septal hypertrophy with normal EF. patient asymptotic. f /u as outpatient. Right lower extremity edema -Doppler order was negative for any DVT. -Most likely secondary to uncontrolled blood pressure. hypokalemia, asymptomatic. -replenish as needed. since this is chronic will schedule medication. -On the day of discharge potassium was 4.2. Pt Condition on Discharge: Good Discharge Disposition: Discharge Home Discharge Time: > 30 minutes Discharge Instructions DIET: Follow Instructions for: Heart Healthy Diet Activities you can perform: Regular-No Restrictions Follow up Referrals: PCP Follow-up - 1 Week New Medications: Clonidine (Clonidine) 0.1 Mg Tab 0.1 MG PO BID for Blood Pressure Management, #60 TAB 0 Refills Magnesium Oxide (Magnesium Oxide) 250 Mg Tab 250 MG PO DAILY for low magnesium, #30 TAB 0 Refills Lisinopril (Lisinopril) 20 Mg Tab 20 MG PO DAILY for hypertension, #30 TAB 0 Refills Potassium Chloride Microencaps (Potassium Chloride Microencaps) 20 Meq Tab 20 MEQ PO Q12HR for low potassium, #60 TAB 0 Refills Continued Medications: Atorvastatin (Atorvastatin) 40 Mg Tab 40 MG PO HS for Cholesterol Management, #30 TAB 0 Refills Donepezil (Donepezil) 5 Mg Tab 5 MG PO HS for Dementia, #30 TAB 0 Refills Metoprolol Succinate ER 24 HR (Metoprolol Succinate ER 24 HR) 25 Mg Tab 100 MG PO DAILY, #30 TAB 0 Refills Lakisha Rodríguez MD Feb 08, 2017 16:03
== END 2017-02-08 18:30 | disposition home or self-care (01) | DRG 305 ==
LOC: NEPC 10:39 → NEDA 15:04 → OBSVTOIN 15:08 → NEDH 20:19 → N06B 22:46
PROVIDERS: ADMIT Family Medicine; ATTEND Family Medicine
DX: I16.0 Hypertensive urgency (principal); I50.9 Heart failure, unspecified; I11.0 Hypertensive heart disease with heart failure; F32.9 Major depressive disorder, single episode, unspecified; E87.6 Hypokalemia; I25.10 Atherosclerotic heart disease of native coronary artery without angina pectoris; R60.0 Localized edema; E78.5 Hyperlipidemia, unspecified; R01.1 Cardiac murmur, unspecified; M85.80 Other specified disorders of bone density and structure, unspecified site; Z85.819 Personal history of malignant neoplasm of unspecified site of lip, oral cavity, and pharynx; Z92.3 Personal history of irradiation; Z95.5 Presence of coronary angioplasty implant and graft
CPT/HCPCS: 73630; 80048; 83735; 84132; 85025; 85027; 85610; 85730; 93005; 93306; 93971; 96365; 96375; J3475; J3480